=== PATIENT | female | born 1980 | race Hispanic/Latino ===

== ENCOUNTER 2023-09-13 21:34 | Inpatient (IN) | payer SELFPAY ==
[2023-09-13 23:05] LABS: Specific Gravity 1.026 (1.005-1.030)
[2023-09-13 23:07] LABS: Absolute Lymphocytes (CBC) 1.8 K/uL (0.7-4.9); Hematocrit 28.1 % (36.0-45.0); Lymphocytes % 17.3 % (15.3-44.8); MCV 82.7 fL (80-100); MPV 8.7 fL (7.6-11.3); Platelets 270 thou/uL (152-406)
[2023-09-13 23:08] LABS: Specific Gravity 1.026 (1.005-1.030); Urine Bacteria >50 /HPF (<20); Urine Bilirubin NEGATIVE (Negative); Urine Blood 3+ (Negative); Urine Clarity Extremely Turbid (Clear); Urine Color Yellow (Yellow); Urine Glucose TRACE (Negative); Urine Mucus Slight /HPF (None Seen); Urine Protein 4+ (Over) (Negative); Urine RBC 21-50 /HPF (None Seen); Urine Urobilinogen Normal (Normal); Urine WBC Clump Occasional /HPF (None Seen); Urine pH 6.5 (5.0-7.0)
[2023-09-13 23:10] LABS: Protime INR 1.11
[2023-09-13] MEDS ORDERED: CEFEPIME 2 GM VIAL ONE (23:10)
[2023-09-13] MEDS ORDERED: NA CHLORIDE 0.9% 100 ML ONE (23:11)
[2023-09-13] MEDS ORDERED: ACETAMINOPHEN 500 MG TAB ONE (23:11)
[2023-09-13] MEDS ORDERED: ONDANSETRON 4 MG/2 ML VIAL ONE (23:11)
[2023-09-13] MEDS ORDERED: MORPHINE 4 MG/ML SYR ONE (23:11)
[2023-09-13] MEDS ORDERED: NA CHLORIDE 0.9% 1,000 ML ONE (23:11)
--- NOTE | 2023-09-13 23:17 | EDPHYS ---
Physician Documentation [facility] Name: Marcelina Armendariz Age: 42 yrs Sex: Female : 1980 Arrival Date: 09/13/2023 Time: 21:34 Bed 14 Private MD: ED Physician Jose Correa HPI: 09/13 22:15 This 42 yrs old Female presents to ER via Ambulatory with complaints of cp Infected toe. 22:15 The patient presents with pain, swelling, tenderness. The complaints affect the right cp foot. Onset: The symptoms/episode began/occurred gradually, and became worse yesterday. Associated signs and symptoms: Pertinent positives: calf tenderness, fever, warmth, open wound to right great toe. Patient reports PMHX significant for DM. Not currently taking any medications and does not have a pcp. Reports increased swelling, redness to right great toe since yesterday. 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 - Social history:: Smoking status: Patient denies any tobacco usage or history of. Patient uses alcohol, weekly. ROS: 22:20 Constitutional: Positive for fever, Negative for poor PO intake, cp 22:20 Eyes: Negative for injury, pain, redness, and discharge, cp 22:20 ENT: Negative for drainage from ear(s), ear pain, sore throat, difficulty swallowing, difficulty handling secretions, 22:20 Cardiovascular: Negative for chest pain, 22:20 Respiratory: Negative for cough, shortness of breath, wheezing, 22:20 Abdomen/GI: Negative for abdominal pain, nausea, vomiting, and diarrhea, 22:20 MS/extremity: Positive for erythema, pain, swelling, of the right foot, 22:20 Neuro: Negative for altered mental status, dizziness, headache, weakness, 22:20 All other systems are negative, Exam: 22:25 Constitutional: The patient appears in no acute distress, alert, awake, cp non-diaphoretic, non-toxic, well developed, well nourished, obese, 22:25 Head/Face: Normocephalic, atraumatic. cp 22:25 Eyes: Periorbital structures: appear normal, Conjunctiva: normal, no exudate, no injection, Sclera: no appreciated abnormality, Lids and lashes: appear normal, bilaterally, 22:25 ENT: External ear(s): are unremarkable, Nose: is normal, Mouth: Lips: moist, Oral mucosa: pink and intact, moist, Posterior pharynx: is normal, airway is patent, no erythema, no exudate, 22:25 Chest/axilla: Inspection: normal, 22:25 Cardiovascular: Rate: tachycardic, Rhythm: regular, Edema: is not appreciated, JVD: is not appreciated, 22:25 Respiratory: the patient does not display signs of respiratory distress, Respirations: normal, no use of accessory muscles, no retractions, labored breathing, is not present, Breath sounds: are clear throughout, no decreased breath sounds, no stridor, no wheezing, 22:25 Abdomen/GI: Inspection: abdomen appears normal, 22:25 Back: pain, is absent, ROM is normal, 22:25 Musculoskeletal/extremity: Extremities: noted in the right foot: mild swelling and erythema of right foot, gross swelling noted of right great toe with plantar side open wound with purulent drainage, 22:25 Neuro: Orientation: to person, place \T\ time. Mentation: is normal, Motor: moves all fours, strength is normal, 23:20 ECG was reviewed by the Attending Physician. cp Vital Signs: 21:45 BP 196 / 93; Pulse 104; Resp 20; Temp 100.1; Pulse Ox 98% ; Weight 131.54 kg; Height 5 kb3 ft. 9 in. ; Pain 7/10; 09/14 00:07 BP 190 / 85; Pulse 95; Resp 22; Pulse Ox 98% on R/A; me1 00:39 BP 176 / 80; Pulse 91; Resp 18 S; Pulse Ox 98% on R/A; ha1 01:02 Temp 98.1(O); ha1 09/13 21:45 Body Mass Index 42.83 (131.54 kg, 175.26 cm) kb3 09/13 21:45 Pain Scale: Adult kb3 MDM: 09/13 21:53 Patient medically screened. cp 23:30 Data reviewed: vital signs, nurses notes, lab test result(s), EKG, radiologic studies, cp plain films, ultrasound. 23:30 Consideration of Admission/Observation Patient was admitted/placed on observation. cp Management of patient was discussed with the following: Hospitalist: Loy Deleon, CHIP MIXING MACHINE OPERATOR will admit after discussion. I considered the following discharge prescriptions or medication management in the emergency department Medications were administered in the Emergency Department. See MAR. Independent interpretation of the following test(s) in the Emergency Department X-Ray: My interpretation is images of right foot show bony changes of distal phalanx of right great toe. Counseling: I had a detailed discussion with the patient and/or guardian regarding the historical points, exam findings, and any diagnostic results supporting the discharge/admit diagnosis, the presence of at least one elevated blood pressure reading (>120/80) during this emergency department visit, lab results, radiology results, the need for further work-up and treatment in the hospital. 09/13 22:11 Order name: Blood Culture Adult (2) cp 09/13 22:11 Order name: CBC with Diff; Complete Time: 23:09 cp 09/13 23:35 Interpretation: Normal except: RBC 3.40; HGB 9.8; HCT 28.1. cp 09/13 22:11 Order name: Lactate w/ 2H reflex if indic.; Complete Time: 23:20 cp 09/13 22:11 Order name: Protime (+inr); Complete Time: 00:32 cp 09/13 22:11 Order name: Ptt, Activated; Complete Time: 00:32 09/13 22:11 Order name: Urinalysis w/ reflexes; Complete Time: 23:35 cp 09/13 23:35 Interpretation: Normal except: [facility] Extremely Turbid; UGLUC TRACE; UBLD 3+; UPROT 4+ cp (Over); UNIT 2+; UESTR 250; UWBC >50; URBC 21-50; UBACT >50; UWBC Clump Occasional. 09/13 22:11 Order name: PREGU; Complete Time: 23:09 cp 09/13 22:11 Order name: BMP; Complete Time: 23:20 cp 09/13 23:35 Interpretation: Normal except: NA 133; GLUC 314; CA 8.1. cp 09/13 22:11 Order name: CRP; Complete Time: 23:20 cp 09/13 23:35 Interpretation: Abnormal: C-REACTIVE PROT 111.00. cp 09/13 22:57 Order name: Wound Culture cp 09/13 23:31 Order name: Urine Culture EDMS 09/13 22:11 Order name: XRAY Foot RIGHT 3 View cp 09/13 22:11 Order name: US LE Artery Uni Ltd cp 09/13 22:11 Order name: US Extremity Venous Unilateral Ltd cp 09/13 22:11 Order name: EKG; Complete Time: 22:12 cp 09/13 22:11 Order name: Accucheck; Complete Time: 00:46 cp 09/13 22:11 Order name: Cardiac monitoring; Complete Time: 23:27 cp 09/13 22:11 Order name: EKG - Nurse/Tech; Complete Time: 23:20 cp 09/13 22:11 Order name: IV Saline Lock - Large Bore; Complete Time: 22:44 cp 09/13 22:11 Order name: Labs collected and sent; Complete Time: 22:44 cp 09/13 22:11 Order name: O2 Per Protocol; Complete Time: 22:44 cp 09/13 22:11 Order name: O2 Sat Monitoring; Complete Time: 22:45 cp 09/13 22:11 Order name: Vital Signs; Complete Time: 22:45 cp EC:20 Rate is 97 beats/min. Rhythm is regular. DE interval is normal. QRS interval is normal. cp QT interval is normal. T waves are Inverted in lead aVR. Interpreted by me. Reviewed by me. Administered Medications: 23:36 Not Given (Patient Refused): ondansetron 4 mg IVP once; over 2 minutes me1 23:36 Drug: Acetaminophen PO 1000 mg PO once Route: PO; me1 09/14 00:05 Follow up: Response: No adverse reaction me1 09/13 23:36 Drug: NS 0.9% IV 1000 ml IV at 1 bolus Per protocol; 1000 mL bolus Route: IV; Rate: 1 me1 bolus; Site: left forearm; 23:37 Not Given (Patient Refused): morphineor iv 4 mg IVP once over 4 mins me1 23:59 Drug: Cefepime IVPB 2 grams IVPB at 200 ml/hr once over 30 mins; (mix in NS 100 mL) me1 Route: IVPB; Rate: 200 ml/hr; Infused Over: 30 mins; Site: left forearm; 09/14 00:45 Follow up: Response: No adverse reaction; IV Status: Completed infusion; IV Intake: ha1 100ml 00:49 Drug: hydrALAZINE IVP 10 mg IVP once Route: IVP; Site: left forearm; ha1 01:00 Follow up: Response: No adverse reaction ha1 00:57 Drug: vancoMYCIN IVPB 1 grams IVPB once over 2 hrs Route: IVPB; Infused Over: 2 hrs; ha1 Site: left forearm; 01:05 Follow up: Response: No adverse reaction; IV Status: Infusion continued ha1 Disposition: 01:35 Co-signature as Attending Physician, Jose Correa MD I agree with the assessment sp4 and plan of care. I reviewed the patient's care provided by the Advanced Practice Provider and agree with the diagnosis and treatment plan. Disposition Summary: 09/13/23 23:17 Hospitalization Ordered Notes: Hospitalization Status: Inpatient Admission cp Provider: Lewis Rangel cp Location: Telemetry/[facility] (Inpatient) cp Condition: Stable cp Problem: new cp Symptoms: have improved cp Bed/Room Type: Standard cp Room Assignment: 222(09/14/23 00:14) cg Diagnosis - Osteomyelitis, unspecified - right great toe cp - Cellulitis of right lower limb cp - Diabetes mellitus due to underlying condition with hyperglycemia cp - Hypertensive heart disease without heart failure cp - UTI/ Urinary tract infection, site not specified cp Forms: - Medication Reconciliation Form cp - SBAR form cp - Leadership Thank You Letter cp Signatures: Dispatcher [employer] Loy Harding FNP-Jeff SUPERVISOR PASTE MIXING-Cla1 Edwin Fuentes PA PA cp Yareli Baldwin, RN RN cg Annette Smith RN RN ha1 Kimi Hillman RN RN kb3 Potepalov, Sergey, MD MD sp4 Tiffany Pratt RN RN me1 Corrections: (The following items were deleted from the chart) 00:14 09/13 23:17 cp cg
--- NOTE | 2023-09-13 23:17 | ER ---
Nurse's Notes [facility] Name: Marcelina Armendariz Age: 42 yrs Sex: Female : 1980 Arrival Date: 09/13/2023 Time: 21:34 Bed 14 Private MD: Diagnosis: Osteomyelitis, unspecified-right great toe;Cellulitis of right lower limb;Diabetes mellitus due to underlying condition with hyperglycemia;Hypertensive heart disease without heart failure;UTI/ Urinary tract infection, site not specified Presentation: 09/13 21:45 Chief complaint: Patient states: Wound to right great toe x1-2 weeks. Coronavirus kb3 screen: Vaccine status: Patient reports receiving the 2nd dose of the covid vaccine. Client denies travel out of the [place] in the last 14 days. Ebola Screen: Patient negative for fever greater than or equal to 101.5 degrees Fahrenheit, and additional compatible Ebola Virus Disease symptoms Patient denies exposure to infectious person. Patient denies travel to an Ebola-affected area in the 21 days before illness onset. Initial Sepsis Screen: Does the patient meet any 2 criteria? No. Patient's initial sepsis screen is negative. Does the patient have a suspected source of infection? No. Patient's initial sepsis screen is negative. Risk Assessment: Do you want to hurt yourself or someone else?. Onset of symptoms was September 06, 2023. 21:45 Method Of Arrival: Ambulatory kb3 21:45 Acuity: SHASHI 2 kb3 Triage Assessment: 21:48 General: Appears in no apparent distress. Behavior is calm, cooperative. Pain: kb3 Complains of pain in plantar aspect of right first toe, right first toe and Right first toenail. 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 - Social history:: Smoking status: Patient denies any tobacco usage or history of. Patient uses alcohol, weekly. Screenin/15 00:00 [place] ED Fall Risk Assessment (Adult) History of falling in the last 3 months, me1 including since admission No falls in past 3 months (0 pts) Confusion or Disorientation No (0 pts) Intoxicated or Sedated No (0 pts) Impaired Gait No (0 pts) Mobility Assist Device Used No (0 pt) Altered Elimination No (0 pt) Score/Fall Risk Level 0 - 2 = Low Risk. Abuse screen: Denies threats or abuse. Nutritional screening: No deficits noted. Tuberculosis screening: No symptoms or risk factors identified. Assessment: 00:00 General: Appears comfortable, obese, well groomed, well developed, Behavior is calm, me1 cooperative, appropriate for age, Reports chills for 12-24 hours, wound to right great toe that started as a blister 3 days ago. Today patient noticed a foul smell and drainage with worsening of wound. States she has had chills on and off today. Pain: Complains of pain in right foot and right first toe and plantar aspect of right first toe Pain does not radiate. Pain at worst was 5 out of 10 on a pain scale. Quality of pain is described as throbbing, Pain began gradually, 2-3 days ago. Is intermittent, Alleviated by rest, relaxation, Aggravated by increased activity, weight bearing. Neuro: Level of Consciousness is awake, alert, obeys commands, Oriented to person, place, time, situation, Appropriate for age. Cardiovascular: Capillary refill < 3 seconds Patient's skin is warm and dry. Respiratory: Airway is patent Respiratory effort is even, unlabored, Respiratory pattern is regular, symmetrical. Derm: Wound noted right foot and right first toe and plantar aspect of right first toe Wound is edematous, macerated wound to right great toe with foul smelling drainage. 00:39 Reassessment: Patient and/or family updated on plan of care and expected duration. Pain ha1 level reassessed. Patient is alert, oriented x 3, equal unlabored respirations, skin warm/dry/pink. 00:50 Reassessment: Patient is alert/active/playful, equal unlabored respirations, skin ha1 warm/dry/pink. rt given to MARYANN Cruz. Vital Signs: 09/13 21:45 BP 196 / 93; Pulse 104; Resp 20; Temp 100.1; Pulse Ox 98% ; Weight 131.54 kg; Height 5 kb3 ft. 9 in. ; Pain 7/10; 09/14 00:07 BP 190 / 85; Pulse 95; Resp 22; Pulse Ox 98% on R/A; me1 00:39 BP 176 / 80; Pulse 91; Resp 18 S; Pulse Ox 98% on R/A; ha1 01:02 Temp 98.1(O); ha1 09/13 21:45 Body Mass Index 42.83 (131.54 kg, 175.26 cm) kb3 09/13 21:45 Pain Scale: Adult kb3 ED Course: 09/13 21:36 Patient arrived in ED. mr 21:48 Triage completed. kb3 21:48 Arm band placed on right wrist. kb3 21:53 Edwin Fuentes PA is PHCP. cp 21:53 Jose Correa MD is Attending Physician. cp 21:56 Tiffany Pratt, MARYANN is Primary Nurse. me1 22:40 Inserted saline lock: 20 gauge in left forearm, using aseptic technique. me1 22:45 CBC with Diff Sent. me1 22:45 Lactate w/ 2H reflex if indic. Sent. me1 22:45 Protime (+inr) Sent. me1 22:45 Ptt, Activated Sent. me1 22:45 CRP Sent. me1 22:45 BMP Sent. me1 22:50 Urinalysis w/ reflexes Sent. me1 22:52 XRAY Foot RIGHT 3 View In Process Unspecified. EDMS 23:04 US LE Artery Uni Ltd In Process Unspecified. EDMS 23:04 US Extremity Venous Unilateral Ltd In Process Unspecified. EDMS 23:12 Wound Culture Sent. me1 23:16 Lewis Rangel MD is Hospitalizing Provider. cp 09/14 00:00 Patient has correct armband on for positive identification. Placed in gown. Bed in low me1 position. Call light in reach. Side rails up X2. Provided Education on: POC. Verbalized understanding. . 00:00 No provider procedures requiring assistance completed. me1 00:06 Blood Culture Adult (2) Sent. me1 01:04 Patient admitted, IV remains in place. ha1 Administered Medications: 09/13 23:36 Not Given (Patient Refused): ondansetron 4 mg IVP once; over 2 minutes me1 23:36 Drug: Acetaminophen PO 1000 mg PO once Route: PO; me1 09/14 00:05 Follow up: Response: No adverse reaction me1 09/13 23:36 Drug: NS 0.9% IV 1000 ml IV at 1 bolus Per protocol; 1000 mL bolus Route: IV; Rate: 1 me1 bolus; Site: left forearm; 23:37 Not Given (Patient Refused): morphineor iv 4 mg IVP once over 4 mins me1 23:59 Drug: Cefepime IVPB 2 grams IVPB at 200 ml/hr once over 30 mins; (mix in NS 100 mL) me1 Route: IVPB; Rate: 200 ml/hr; Infused Over: 30 mins; Site: left forearm; 09/14 00:45 Follow up: Response: No adverse reaction; IV Status: Completed infusion; IV Intake: ha1 100ml 00:49 Drug: hydrALAZINE IVP 10 mg IVP once Route: IVP; Site: left forearm; ha1 01:00 Follow up: Response: No adverse reaction ha1 00:57 Drug: vancoMYCIN IVPB 1 grams IVPB once over 2 hrs Route: IVPB; Infused Over: 2 hrs; ha1 Site: left forearm; 01:05 Follow up: Response: No adverse reaction; IV Status: Infusion continued ha1 Medication: 00:00 VIS not applicable for this client. me1 Intake: 00:45 IV: 100ml; Total: 100ml. ha1 Outcome: 09/13 23:17 Decision to Hospitalize by Provider. 09/14 01:03 Admitted to Med/surg accompanied by tech, via stretcher, room 222, with chart, Report ha1 called to MARYANN Cruz Condition: stable 01:04 Patient left the ED. ha1 Signatures: Dispatcher [employer] EDMS Nori Moody, Reg Reg mr Edwin Fuentes PA PA cp Annette Smith RN RN ha1 Kimi Hillman, MARYANN RN kb3 Tiffany Pratt RN RN ks1
[2023-09-13 23:19] LABS: Potassium 3.8 mEq/L (3.5-5.1)
[2023-09-14] MEDS ORDERED: VANCOMYCIN 1 GM/VIAL ONE (00:23)
[2023-09-14] MEDS ORDERED: NA CHLORIDE 0.9% 250 ML ONE (00:23)
--- NOTE | 2023-09-14 00:33 | P.HP ---
Certification for Inpatient Patient admitted to: Inpatient With expected LOS: >2 Midnights Patient will require the following post-hospital care: None Practitioner: I am a practitioner with admitting privileges, knowledge of patient current condition, hospital course, and medical plan of care. Services: Services provided to patient in accordance with Admission requirements found in Title 42 Section 412.3 of the Code of Federal Regulations <Loy Deleon - Last Filed: 09/14/23 00:29> Patient History Date of Service: 09/14/23 Reason for admission: Diabetic foot wound History of Present Illness: 42-year-old female with history of diabetes mellitus type 2 with noncompliance presents to the emergency department chief complaint of wound to the right great toe. She reports she first noticed this wound approximately 3 days ago, she was told she is diabetic but 3 years ago and had side effects with metformin, she did not pursue further care since then for her diabetes. She was evaluated here in the emergency department her labs are significant for white blood count 10.7 hemoglobin 9.8 hematocrit 28.1 sodium 133 glucose 314 C-reactive protein 111 UA concerning for urinary tract infection x-ray of the right foot with some concern for possible osteomyelitis negative for DVT, no occlusive findings on arterial ultrasound of lower extremity. EB virus admit patient for further evaluation and management of diabetic foot wound, possible osteomyelitis. - Past Medical/Surgical History -: Diabetes mellitus type 2 -: Psychosocial/ Personal History: Lives at home with family - Social History Smoking Status: Never smoker Alcohol use: No CD- Drugs: No Caffeine use: Yes Place of Residence: Home <Loy Deleon - Last Filed: 09/14/23 00:29> Date of Service: 09/14/23 <Ming Marmolejo - Last Filed: 09/14/23 16:47> Review of Systems 10-point ROS is otherwise unremarkable Musculoskeletal: Foot Pain, As per HPI <Loy Deleon - Last Filed: 09/14/23 00:29> Physical Examination - Physical Exam General: Alert, In no apparent distress, Oriented x3, Obese HEENT: Atraumatic, PERRLA, Mucous membr. moist/pink, EOMI, Sclerae nonicteric Neck: Supple, 2+ carotid pulse no bruit, No LAD, Without JVD or thyroid abnormality Respiratory: Clear to auscultation bilaterally, Normal air movement Cardiovascular: Regular rate/rhythm, Normal S1 S2 Gastrointestinal: Normal bowel sounds, No tenderness Musculoskeletal: No tenderness Integumentary: No rashes, Tenderness/swelling, Erythema, Warmth, Diabetic ulcer (Right great toe with necrotic tissue present) Neurological: Normal speech, Normal strength at 5/5 x4 extr, Normal tone, Normal affect - Studies Laboratory Data (last 24 hrs) 09/13/23 09/13/23 09/13/23 22:40 22:40 22:40 WBC 10.70 Hgb 9.8 L Hct 28.1 L Plt Count 270 PT 12.2 INR 1.11 APTT 19.2 L Sodium 133 L Potassium 3.8 BUN 16 Creatinine 0.83 Glucose 314 H <Loy Deleon - Last Filed: 09/14/23 00:29> - Studies Laboratory Data (last 24 hrs) 09/13/23 09/13/23 09/13/23 22:40 22:40 22:40 WBC 10.70 Hgb 9.8 L Hct 28.1 L Plt Count 270 PT 12.2 INR 1.11 APTT 19.2 L Sodium 133 L Potassium 3.8 BUN 16 Creatinine 0.83 Glucose 314 H Microbiology Data (last 24 hrs): 09/13/23 23:57 Blood - Blood Anaerobic Blood Culture - Final <Ming Marmolejo - Last Filed: 09/14/23 16:47> Assessment and Plan - Plan Assessment: Sepsis secondary to diabetic foot wound-right great toe with concern for osteomyelitis Diabetes mellitus type [id number] with hyperglycemia Plan: Sepsis secondary to diabetic foot wound-right great toe with concern for osteomyelitis SIRS criteria present including tachycardia, tachypnea source of infection confirmed with diabetic ulceration to the right great toe, lactate less than 2. Blood cultures obtained in the emergency department, continue broad-spectrum biotics with vancomycin/cefepime. N.p.o., general surgery consult for possible debridement. MRI foot ordered as well as infectious disease consultation. Diabetes mellitus type [id number] with hyperglycemia ACHS Accu-Chek, sliding scale insulin, A1c in the morning. Patient was previously on metformin about 3 years ago but could not tolerate side effects, has not followed up since and has not been on any medication for diabetes. DVT PPX: SCD Code status: Full Discharge Plan: Home Plan to discharge in: Greater than 2 days - Advance Directives Does patient have a Living Will: No Does patient have a Durable POA for Healthcare: No - Code Status/Comfort Care Code Status Assessed: Yes (Full code) Critical Care: No Time Spent Managing Pts Care (In Minutes): 55 <Loy Deleon - Last Filed: 09/14/23 00:29> Physician Review: Patient Assessed, Agree with Above Assessment and Plan <Ming Marmolejo - Last Filed: 09/14/23 16:47>
[2023-09-14] MEDS ORDERED: HYDRALAZINE HCL 20 MG/ML VIAL ONE (01:02)
[2023-09-14] MEDS ORDERED: MORPHINE 2 MG/ML SYR IV PRN (01:37)
[2023-09-14] MEDS ORDERED: ONDANSETRON 4 MG/2 ML VIAL IV PRN (01:37)
[2023-09-14] MEDS: NA CHLORIDE 0.9% 1,000 ML IV SCH ×2 (01:48→14:48)
[2023-09-14] MEDS ORDERED: VANCOMYCIN 2 GM in NA CHLORIDE 0.9% 500 ML IVPB ONE (03:00)
[2023-09-14 03:05] VITALS: BMI 42.8
[2023-09-14 03:07] LABS: Absolute Lymphocytes (CBC) 2.4 K/uL (0.7-4.9); Lymphocytes % 24.5 % (15.3-44.8); MCV 83.4 fL (80-100); MPV 8.5 fL (7.6-11.3); Platelets 273 thou/uL (152-406); RBC Red Blood Cell Count 3.36 M/uL (3.86-4.86)
[2023-09-14 03:20] LABS: Potassium 3.1 mEq/L (3.5-5.1)
[2023-09-14] MEDS ORDERED: VANCOMYCIN 1 GM in NA CHLORIDE 0.9% 250 ML IVPB SCH (09:00)
--- NOTE | 2023-09-14 09:46 | P.CNS ---
Date of Consult: 09/14/23 Reason for consult: Right great toe infection History of present illness: Patient is a 42-year-old female who came to the emergency room with increasing pain swelling and redness in her right great toe. This has been going on for approximately a week. Patient denies any purulent discharge fever or chills. Her sugar has been running high. Patient is noncompliant diabetic. Review of systems: Patient denies any sore throat, runny nose, cough, headache, dizziness, chest pain fever or chills. Past medical history: Type 2 diabetes Past surgical history: Allergies: None Social history: Patient does smoke and drink alcohol Family history: Noncontributory Vital signs: Stable, afebrile Physical exam: Awake, alert and oriented x3 Head and neck exam: No masses Chest: Clear Heart: S1-S2 Abdomen: Soft Extremity: Neurovascular intact. Right great toe has a large pus pocket surrounding the toe, incorporating approximately 50% of the great toe. There is proximal erythema in the base of the toe and on the dorsum of the foot. There is edema and tenderness as well. Neuro: Nonfocal Diagnostic data: X-ray results are pending however the distal phalanx appears to be mottled consistent with osteomyelitis. White count is normal, C-reactive protein is 111 lactic acid is 1.0 and glucose is greater than 350 Assessment: Right great toe diabetic infection with abscess and probable osteomyelitis Plan/recommendation: Admit, n.p.o., IV fluids, IV antibiotics and to the OR for incision, drainage and debridement of right great toe abscess and infection. It was explained to the patient that the distal tip if its nonviable we will go ahead and amputate it. Patient understands risk, benefits and alternatives and agrees to procedure. CC:
[2023-09-14] MEDS ORDERED: NA CHLORIDE 0.9% 1,000 ML ONE (09:48)
[2023-09-14] MEDS ORDERED: propofoL 200 MG/20 ML VIAL IV ONE (09:49)
[2023-09-14] MEDS ORDERED: ONDANSETRON 4 MG/2 ML VIAL ONE (09:49)
[2023-09-14] MEDS ORDERED: MIDAZOLAM HCL 2 MG/2 ML INJ ONE (09:49)
[2023-09-14] MEDS ORDERED: FENTANYL CITR 100 MCG/2 ML ONE (09:49)
[2023-09-14] MEDS ORDERED: LIDOCAINE 1% MPF 5 ML VIAL ONE (09:49)
[2023-09-14] MEDS ORDERED: KETOROLAC 30 MG/ML INJ ONE (10:15)
--- NOTE | 2023-09-14 10:29 | P.OP ---
Date of Service: 09/14/23 Preop diagnosis: Right great toe diabetic infection with probable osteomyelitis Postop diagnosis: Same Procedure performed: Incision, drainage and debridement of right great toe diabetic infection with partial amputation of the distal phalanx Surgeon: Wisam Gordon MD Quarter Doper: None Estimated blood loss: Minimal Specimen: Pus and infected tissue and distal toe Findings: As above Anesthesia: General Complications: None Drains: None Fluids and blood products: Nonapplicable Disposition: Recovery room Operative note: Patient brought to the OR placed in the supine position. General anesthesia begun. Patient prepped and draped in the usual sterile fashion. Marcaine 0.5% infiltrated locally for postop pain control. 15 blade used to excise all of the necrotic tissue around the distal toe down to the plantar aspect and to the medial aspect of the toe utilizing cautery and scissors as well. The total area of debridement was approximately 4 x 4 cm. The bone was involved in this infection which was removed with bone cutters. Debridement proceeded to all healthy tissue until bleeding tissue seen. Wound irrigated and then bleeding controlled with cautery. And then collagenase dressing applied. Patient tolerated the procedure in stable condition. Patient taken to recovery room in good general condition. CC:
[2023-09-14] MEDS ORDERED: COLLAGENASE 30 GM OINTMENT TOP ONE (10:30)
[2023-09-14 10:56] VITALS: O2SAT 99
[2023-09-14] MEDS: INSULIN REGULAR (HUMAN) 100 UNIT/ML SQ SCH ×4 (11:30→21:00)
[2023-09-14] MEDS: CEFEPIME 1 GM in NA CHLORIDE 0.9% 100 ML IV SCH ×2 (12:27→20:38)
[2023-09-14] MEDS: KCL 20 MEQ/100 mL IVPB 20 MEQ/100 ML BAG IV SCH ×2 (12:27→18:16)
[2023-09-14] MEDS: VANCOMYCIN 2 GM in NA CHLORIDE 0.9% 500 ML IVPB SCH (14:54)
[2023-09-14] MEDS ORDERED: KCL 20 MEQ/100 mL IVPB 20 MEQ/100 ML BAG IV SCH (19:00)
[2023-09-15] MEDS: NA CHLORIDE 0.9% 1,000 ML IV SCH ×2 (02:12→07:37)
[2023-09-15] MEDS: VANCOMYCIN 2 GM in NA CHLORIDE 0.9% 500 ML IVPB SCH ×2 (02:12→14:00)
[2023-09-15 04:29] LABS: Absolute Lymphocytes (CBC) 2.1 K/uL (0.7-4.9); MPV 8.1 fL (7.6-11.3); Platelets 271 thou/uL (152-406); RBC Red Blood Cell Count 3.21 M/uL (3.86-4.86)
[2023-09-15 04:41] LABS: Potassium 3.9 mEq/L (3.5-5.1)
--- NOTE | 2023-09-15 05:14 | P.PN ---
Date of Service: 09/15/23 Subjective: Physical Exam: Vitals: reviewed GEN: Alert, oriented, NAD HEENT: Normal conjunctiva, sclera anicteric CV: Regular rate & rhythm, no edema Pulm: Nonlabored respiraitons, clear bilaterally ABD: Soft, nontender, nondistended MSK: No joint tenderness Integumentary: surgical dressing in place, s/p partial amputation of the distal phalanx Neuro: Normal speech, normal affect Problem List: Sepsis secondary to diabetic foot wound-right great toe with concern for osteomyelitis NIDDM2 with hyperglycemia PLAN General surgery consulted - Dr. Gordon s/p I&D of right great toe diabetic infection with partial amputation of the distal phalanx (09/14) continue empiric cefepime / vanc ID consulted follow cultures wound cx: GNR, GPC, GPR on stains; culture pending blood cx: NGTD MRI foot ordered ID consulted ACHS Accu-Chek, sliding scale insulin, A1c in the morning. Patient was previously on metformin about 3 years ago but could not tolerate side effects, has not followed up since and has not been on any medication for diabetes. PRN pain medication
[2023-09-15] MEDS: INSULIN REGULAR (HUMAN) 100 UNIT/ML SQ SCH ×3 (07:30→18:27)
[2023-09-15] MEDS: HYDROCODONE/APAP 7.5/325 MG TAB PO PRN ×2 (10:18→18:25)
[2023-09-15] MEDS: CEFEPIME 2 GM in NA CHLORIDE 0.9% 100 ML IV SCH ×2 (10:19→18:25)
--- NOTE | 2023-09-15 11:19 | RAD REPORT ---
EXAM DESCRIPTION: MRI - Foot Right Wo Cont - 09/15/2023 8:52 am CLINICAL HISTORY: diabetic foot wound, poss. osteo COMPARISON: Foot Right 3 View dated 09/13/2023 TECHNIQUE: Multiplanar multisequence MRI of the right foot, obtained without IV contrast. FINDINGS: Soft tissue defect involving the distal aspect of the big toe, as well as a suspected soft tissue defect of the distal phalanx. Overlying susceptibility artifact at the air/ soft tissue inter face limits evaluation. Questionable mildly decreased T1 signal and mildly increased T2 signal along the remainder of the first digit distal phalanx. No other focal marrow signal abnormality Pronounced soft tissue swelling and subcutaneous edema along the dorsum of the foot more apparent lat erally. Small fluid signal intensity foci adjacent to the dorsal aspect of the fourth metatarsal, bes t seen on series 4, image 13, as well as the plantar aspect of the fourth metatarsal, best seen on im age 9 of the same series are nonspecific and may represent small ganglion cysts or venous varices. Deep muscles of the foot show some fatty atrophic changes laterally. Scattered [id number] degenerative changes. The visualized lung extensor and flexor tendons are unremarkable to the extent evaluated. Limited chung luation of the ligamentous structures, given the large field of view. IMPRESSION: Defect along the distal aspect of the first digit distal phalanx as well as the adjacent soft tissues, may relate to sequelae of debridement. Questionable mild signal abnormalities involvin g the remainder of the first digit distal phalanx are present, which may relate to postprocedural mauricio nges however possibility of ongoing osteomyelitis cannot be entirely excluded. Soft tissue swelling most pronounced along the dorsum as above. No appreciable abnormal fluid collect ions within limits of noncontrast evaluation.
[2023-09-15] MEDS ORDERED: CLONIDINE HCL 0.3 MG TAB PO ONE (12:48)
--- NOTE | 2023-09-15 13:07 | PN ---
Date of Progress Note: 09/15/2023 Subjective: Patient is awake, alert, feels better. Objective: Vital Signs: Stable. Afebrile. Laboratory Data: Cultures pending, although the Gram stain is growing gram-negative rods. White cou nt is 8.6. Chemistry reviewed. Sugar is improving. Dressing is clean, dry, intact. Assessment: Incision, drainage and debridement of a diabetic right great toe infection with partial distal phalanx amputation. Recommendations: Continue IV antibiotics. Wound care is ordered. Check cultures and adjust antibio tics accordingly. Hopefully discharge in 1 to 2 days. Await MRI results as well, which is pending. /MODL Voice ID: [id number] Report ID: [id number]
--- NOTE | 2023-09-15 15:19 | CON ---
History Of Present Illness: The patient is here for osteomyelitis of her right foot. She has signif icant past medical history of diabetes mellitus, noncompliant to her medication for the last 3 years. The patient is coming in with right big toe infection. Denies any headache, nausea, vomiting, ches t pain, abdominal pain, constipation, or diarrhea. Had surgical debridement done to her right foot y esterday. Past Medical History: Diabetes mellitus, , otherwise unremarkable. Social History: Nonsmoker, nondrinker. Family History: Noncontributory. Medications: Cefepime, vancomycin. See MAR for other medications. Allergies: NO KNOWN DRUG ALLERGIES. Review of Systems: A 10-point review was performed. Physical Examination: General: This is a 42-year-old female sitting in bed, not in any acute cardiopulmonary distress. Vital Signs: Temperature 97, pulse 89, respirations 16, blood pressure 166/81. HEENT: Unremarkable. Neck: Supple. Lungs: Basal crackles. Heart: S1, S2. Regular. Abdomen: Soft, nontender. Bowel sounds present. Extremities: No edema. Right foot in surgical dressing. Laboratory Data: Shows WBC 8.6, hemoglobin 9.1, platelets 271. Chemistry shows BUN of 14, creatinin e 0.6, hemoglobin A1c of 12.3. MRI done today shows the patient has defect along the distal aspect o f the first digit distal phalanx as well as the adjacent soft tissue sequela from debridement. Surgical Report: Total area of debridement was 4 x 4. Bone was involved in this infection, which wa s removed with a bone cutter. Assessment And Plan: A 42-year-old female with uncontrolled diabetes mellitus, coming in with diabet ic foot ulcer and osteomyelitis of right foot status post debridement. We will recommend the patient to be on oral antibiotic for 2 weeks, follow up with the surgical team for wound care. The patient can be switched to oral Cipro 500 mg q.12 hours and doxycycline 100 mg q.12 hours for 2 weeks. NF/MODL Voice ID: [id number] Report ID: [id number]
--- NOTE | 2023-09-15 15:41 | RAD REPORT ---
EXAM DESCRIPTION: Lower Extremity Artery Uni Ltd CLINICAL HISTORY: Pain;Swelling Lower Extremity Artery Uni Ltd TECHNIQUE: Real time images, spectral wave analysis, Doppler color flow analysis and measurement of the arterial velocities of the bilateral lower extremities was performed. COMPARISON: None available for comparison FINDINGS: The right common femoral artery shows normal triphasic tracings and a peak systolic veloci ty of 166.5 cm/s. Triphasic tracings also obtained of the right superficial femoral, popliteal arteries. There are biphasic tracings at the posterior tibial and dorsalis pedis arteries. No focal increase in systolic velocities. IMPRESSION: Multiphasic tracings throughout the right lower extremity arteries with no evidence of s ignificant atherosclerotic stenosis or arterial occlusion. Electronically signed by: Sterling Law MD 09/13/2023 11:24 PM CDT Due to temporary technical issues with the PACS/Fluency reporting system, reports are being signed by the in house radiologists without review as a courtesy to insure prompt reporting. The interpreting radiologist is fully responsible for the content of the report.
--- NOTE | 2023-09-15 15:47 | RAD REPORT ---
EXAM DESCRIPTION: Extremity Venous Uni Ltd CLINICAL HISTORY: SWELLING Extremity Venous Uni Ltd COMPARISON: None. TECHNIQUE: Grayscale, color Doppler, and spectral Doppler imaging of the right lower extremity venou s system. FINDINGS: Normal compressibility, phasicity, and flow identified in the right common femoral, femora l, popliteal, and visualized calf veins. Normal flow in the visualized greater saphenous vein. No ech ogenic thrombus identified. Morphologically normal right inguinal lymph node is noted. IMPRESSION: No evidence of deep venous thrombosis in the right lower extremity. Electronically signed by: Roxana Ward MD 09/13/2023 11:21 PM CDT Due to temporary technical issues with the PACS/Fluency reporting system, reports are being signed by the in house radiologists without review as a courtesy to insure prompt reporting. The interpreting radiologist is fully responsible for the content of the report.
--- NOTE | 2023-09-15 16:40 | RAD REPORT ---
EXAM DESCRIPTION: Foot Right 3 View CLINICAL HISTORY: Pain;Swelling TECHNIQUE: Three views of the right foot are submitted. COMPARISON: None available for comparison FINDINGS: Bones: No acute fracture or dislocation. No focal erosive or lytic bony changes. Joints: Joint spaces are unremarkable. Soft tissues: Soft tissue swelling and lucencies at the distal first toe which may represent soft tis bianca infection with necrosis IMPRESSION: Soft tissue swelling and lucencies at the distal first toe which may represent soft tiss ue infection with necrosis. No underlying erosive or lytic bony changes. If osteomyelitis is clinical ly suspected, recommend further evaluation with MRI. Electronically signed by: Sterling Law MD 09/13/2023 11:21 PM CDT Due to temporary technical issues with the PACS/Fluency reporting system, reports are being signed by the in house radiologists without review as a courtesy to insure prompt reporting. The interpreting radiologist is fully responsible for the content of the report.
--- NOTE | 2023-09-15 17:05 | EKG ---
Test Date: 2023-09-13 Test Time: 23:13:16 [employer]: KODI MEASUREMENT RESULTS: Intervals: Rate: 97 RI: 130 QRSD: 82 QT: 362 QTc: 459 Clever: P: 34 RI: 130 QRS: 57 T: -14 INTERPRETIVE STATEMENTS: Normal sinus rhythm Cannot rule out Anterior infarct, age undetermined T wave abnormality, consider inferior ischemia Abnormal ECG No previous ECG available for comparison Electronically Signed On 09-15-23 17:03:51 CDT by Marcelo Sanatna
[2023-09-15] MEDS ORDERED: HYDRALAZINE HCL 20 MG/ML VIAL IV PRN (18:25)
[2023-09-15] MEDS ORDERED: METOPROLOL TARTRATE 5 MG/5 ML INJ IV STA (18:32)
[2023-09-15] MEDS ORDERED: VANCOMYCIN 2 GM in NA CHLORIDE 0.9% 500 ML IVPB SCH (20:00)
[2023-09-15] MEDS: LOSARTAN POTASSIUM 50 MG TABLET PO SCH (21:50)
[2023-09-16] MEDS: CEFEPIME 2 GM in NA CHLORIDE 0.9% 100 ML IV SCH (02:01)
[2023-09-16] MEDS ORDERED: METOPROLOL TAR 25 MG TAB PO SCH (06:00)
[2023-09-16] MEDS: INSULIN REGULAR (HUMAN) 100 UNIT/ML SQ SCH (07:30)
[2023-09-16] MEDS ORDERED: CIPROFLOXACIN HCL 500 MG TAB PO SCH (09:00)
[2023-09-16] MEDS ORDERED: DOXYCYCLINE 100 MG CAP PO SCH (09:00)
[2023-09-16] MEDS: LOSARTAN POTASSIUM 50 MG TABLET PO SCH (09:28)
--- NOTE | 2023-09-16 11:40 | PN ---
Date of Progress Note: 09/16/2023 Subjective: The patient is awake, alert. No complaints. Objective: Vital Signs: Stable, afebrile. Laboratory Data: Cultures show Proteus and E coli growing in the urine and tissue culture, sensitive to all antibiotics. Her dressing is clean, dry, intact. Assessment: Status post partial amputation, incision, drainage and debridement of her right great to e diabetic infection. Recommendations: The patient is cleared for discharge on Augmentin. Wound care orders given. [facility]. Discharge instructions given. Discharge discussed with Dr. Thomson. /MODL Voice ID: [id number] Report ID: [id number]
[2023-09-16 12:21] VITALS: BP 224/113; TEMP 97.6
== END 2023-09-16 14:16 | disposition home or self-care (01) | DRG 854 ==
LOC: ER 21:34 → ERHOLD 09-14 00:09 → 2ND 09-14 00:37
PROVIDERS: ADMIT Internal Medicine; ATTEND Hospitalist
PROC: 0JBQ0ZZ Excision of Right Foot Subcutaneous Tissue and Fascia, Open Approach (ICD-10-PCS; 2023-09-14)
PROC: 0Y6P0Z3 Detachment at Right 1st Toe, Low, Open Approach (ICD-10-PCS; principal; 2023-09-14 10:00)
DX: A41.51 Sepsis due to Escherichia coli [E. coli] (principal); E11.52 Type 2 diabetes mellitus with diabetic peripheral angiopathy with gangrene; L03.115 Cellulitis of right lower limb; N39.0 Urinary tract infection, site not specified; M86.8X7 Other osteomyelitis, ankle and foot; Z68.41 Body mass index [BMI] 40.0-44.9, adult; E11.65 Type 2 diabetes mellitus with hyperglycemia; E11.69 Type 2 diabetes mellitus with other specified complication; E11.621 Type 2 diabetes mellitus with foot ulcer; L97.519 Non-pressure chronic ulcer of other part of right foot with unspecified severity; I11.9 Hypertensive heart disease without heart failure; E66.9 Obesity, unspecified; B96.4 Proteus (mirabilis) (morganii) as the cause of diseases classified elsewhere; Z91.148 Patient's other noncompliance with medication regimen for other reason
CPT/HCPCS: 36415; 80048; 80202; 81001; 81025; 82947; 83036; 83605; 85025; 85610; 85730; 86140; 87040; 87070; 87075; 87077; 87086; 87088; 87176; 87186; 87205; 88304; 88311; 93005; 93926; 93971; 96365; 96375; 99285; J0360; J0692; J1815; J2001; J2250; J2270; J2405; J2704; J3010; J3480; J3590; J7030; J7040; J7050